=== PATIENT | male | born 1955 | race Caucasian/White ===

== ENCOUNTER 2020-05-31 11:27 | Emergency (ER) | payer OTHER, MEDICARE, SELFPAY ==
[2020-05-31 11:28] VITALS: BP 155/102; PULSE 81; RESP 16; TEMP 36.2; O2SAT 98; BMI 31.8
--- NOTE | 2020-05-31 12:06 | ED.VISSUMM ---
- ER Visit Summary Date of Service: 05/31/20 Chief Complaint: Back pain History of Present Illness: The patient is a 64 M who presents with back pain that is gradually been getting worse throughout the day today. Patient states that he recently had diarrhea for the last couple of days and has been laying around mostly. Patient states that his back feels more stiff. Patient states the pain goes from his neck all the way down to his posterior thighs. Patient states nothing makes it better or worse. Patient denies any fevers or chills. Patient states his diarrhea has improved. Patient denies any dysuria or hematuria. Patient denies any urinary or stool incontinence. Physical Examination: Vital signs are stable. Patient is afebrile. Patient is in no acute distress. Musculoskeletal exam reveals tenderness and mild spasm of the lumbar, thoracic, and cervical paraspinal muscles. There is no midline tenderness. There is no bony crepitance or step-off. Range of motion was slightly limited in all motions of the cervical, thoracic, and lumbar spine secondary to pain. Strength is 5/5 bilateral in the upper and lower extremities. There are no sensory deficits noted. Deep tendon reflexes are 2+/4 bilaterally. Heart was regular rate and rhythm. Lungs are clear and equal bilaterally. Abdomen is soft nontender. Emergency Department Course and Treatment: Patient was given a prescription for Zanaflex. Patient states he has cyclobenzaprine at home which he tried with no improvement. Patient was instructed to do range of motion exercises. Patient was instructed to follow-up with his primary care physician in 5 to 7 days. Patient was instructed return if worse in any way. Patient understood and was agreeable with the plan. All questions were answered. Disposition: Discharge home Impression: Back pain This note was generated with [employer] dictation software. It may contain incorrect words, spelling, and punctuation that were not noted in review of the chart prior to signing ED Disposition - Plan for ED Patient: Disposition: Home or Assisted Living Diagnosis: Back pain Instructions: ED Neck Back Pain General Prescriptions: Tizanidine HCl [Zanaflex] 4 mg PO QHS PRN PRN #10 tab PRN Reason: Muscle Spasm Prescription Printed Referrals: Yosvany Hammer MD [Primary Care Provider] - 5-7 Days
[2020-05-31] MEDS: tiZANidine HCl 2 MG Tablet 4 MG PO (12:25)
[2020-05-31 12:28] VITALS: BP 147/93; PULSE 72; RESP 16
== END 2020-05-31 12:30 | disposition home or self-care (01) ==
LOC: ED 12:17
PROVIDERS: Emergency Provider Emergency Medicine; PCP Family Medicine
DX: M54.9 Dorsalgia, unspecified (principal); R19.7 Diarrhea, unspecified
CPT/HCPCS: 99283

== ENCOUNTER 2021-09-04 07:23 | Day surgery (SDC) | payer OTHER, MEDICARE, SELFPAY ==
[2021-09-04 07:55] VITALS: BP 122/76; PULSE 87; RESP 16; TEMP 37; O2SAT 97; BMI 36.3
[2021-09-04] MEDS: Lactated Ringers 1,000 ML 100 ML IV (08:01)
[2021-09-04 08:10] LABS: Hematocrit 41.7 % (40-54); Hemoglobin 13.3 g/dL (13.0-16.5); Mean Corp Hgb Conc 31.9 g/dL (32-36); Mean Corpuscular Hgb 28.6 pg (27.0-32.0); Mean Corpuscular Volume 89.7 fL (80-94); Mean Platelet Vol. 9.4 fl (6.2-12.0); Platelet Count 297 K/mm3 (150-450); RBC Distribution Width CV 13.8 % (11.6-14.6); RBC Distribution Width SD 45.8 fl (35.1-43.9); Red Blood Count 4.65 M/mm3 (4.6-6.2); White Blood Count 7.4 K/mm3 (4.4-11.0)
[2021-09-04 08:16] LABS: Scan Indicated on CBC? Y/N NO
--- NOTE | 2021-09-04 09:00 | CYST_PTH ---
PATIENT: BENITEZ KRISHNAN LOC: [facility] U#:[id number] AGE/SX: 66/M ROOM: RE09/04/[address]: Dr. kP Gomes DDS : 1955 BED: DIS: 09/04/2021 SPEC #: [id number] RECD: 09/04/21 12:52 STATUS: FAITH DUONG #: [id number] KHOA: 09/04/21 09:[address]: Pk Gomes DEPT: SURGICAL PATHOLOGY RECD BY: Romana Ho ENTERED: 09/05/21 09:16 SP TYPE: Cyst OTHR DR: Dr. Yosvany Hammer MD Tissues: CYST Procedures: Surgery Specimen Level IV HEADER OPERATION: Removal of impacted tooth #17, surgical extraction of #18 PRE-OP DIAGNOSIS: Left mandibular lesion TISSUE SUBMITTED: Left mandibular lesion MICROSCOPIC DIAGNOSIS Mandibular cyst, left: Benign odontogenic cyst, consistent with residual cyst. See comment. SJ:judie 09/06/2021 COMMENT Correlation with clinical findings and appropriate follow up are necessary. Case has been reviewed in consultation with Dr. Mendenhall who concurs with the above diagnosis. IDC:AM MICROSCOPIC DESCRIPTION Slides are reviewed. GROSS DESCRIPTION Received in fixative is one container labeled with the patient's name and designated mandibular cyst left. The specimen consists of two pieces of partially opened cystic tissue measuring 2 x 1.5 x 0.5 cm and 2 x 1.5 x 1 cm. The pieces are bisected and reveal brownish, hemorrhagic material. The entire specimen is submitted in two cassettes with each cassette containing one piece. / DEMARCO:judie 09/05/21 TC:5 CPT: 11173
[2021-09-04] MEDS: Lidocaine 2% /Epi 1:100 (50ml) 50 ML Vial (09:15)
[2021-09-04] MEDS: Bupivacaine Mpf 0.5% 30 ML VIAL (09:52)
[2021-09-04 10:02] VITALS: BP 122/76; BP 133/89; PULSE 97; RESP 16; TEMP 36.6; O2SAT 95
--- NOTE | 2021-09-04 10:04 | PCM.OPRPT ---
Report of Operation Date of Procedure: 09/04/21 Pre-Operative Diagnosis: Odontogenic cyst/neoplasm Post-Operative Diagnosis: Same Surgery/Procedure Performed:: Surgical removal teeth 17 and 18 and removal of left mandibular cyst Description of Surgical Findings:: Large cystic lesion measuring greater than 5 cm Surgeon: Mireya Type of Anesthesia: General Special Medications: None Specimen's removed: Large mandibular cystic lesion left mandible Drains: None Estimated Blood Loss (mL): Minimal Fluids Replaced: 250 cc Description of Procedure: Patient was identified in the preoperative holding area and the surgical procedure was explained in detail also with the included potential risk such as fractured jaw inferior alveolar and lingual nerve injuries, infection, possible need for further surgeries depending on the pathology. Patient was taken to the operating room placed in the supine position on the operating room table. The appropriate anesthetic monitors were then placed. IV general anesthesia was then induced patient was intubated via the oral endotracheal route without complication. Patient was then prepped and draped in the sterile fashion for oral and maxillofacial procedures. At this time lidocaine 2% 1-100,000 epinephrine was infiltrated into the left inferior alveolar nerve area to anesthetize this nerve. Local anesthesia was then administered in the buccal vestibule of the left mandible. Full-thickness mucoperiosteal flap incision was carried from the ascending ramus carried anteriorly to tooth #18. Tooth 18 was then removed by sectioning and then bone removal over impacted tooth 17 was performed. Tooth #17 was removed and sectioned so as to not injure neurovascular structures or fracture of the mandible. The cyst was notably large and was removed from the anterior ramus all the way up to the body of the left mandible. Tissue was sent for histopathologic evaluation. The site was irrigated and sutured with 3-0 Chromic Gut suture. Patient tolerated the procedure and anesthesia well was extubated and taken to the PACU unit in stable condition breathing spontaneously. All sponge and needle counts were correct no complications noted estimated blood loss minimal Procedure Start Time: 09:11 Procedure Stop Time: 10:11 Complications None
[2021-09-04 10:15] VITALS: BP 114/82; BP 122/76; PULSE 89; RESP 17; O2SAT 98
--- NOTE | 2021-09-04 10:16 | SUR.PHASEI ---
TAKING ICE CHIPS WITHOUT PROBLEM
[2021-09-04 10:22] VITALS: BP 122/76; BP 125/80; PULSE 83; RESP 17; TEMP 37; O2SAT 95
[2021-09-04 10:45] VITALS: BP 122/76
[2021-09-04 11:14] VITALS: BP 122/76; BP 126/83; PULSE 85; RESP 16; TEMP 36.6; O2SAT 96
== END 2021-09-04 11:16 | disposition home or self-care (01) ==
LOC: SDC 07:25 → AC 07:26
PROVIDERS: PCP Family Medicine; Referring Provider Dentist Oral and Maxillofacial Surgery; Visit Provider Dentist Oral and Maxillofacial Surgery
PROC: (CPT 41899; principal; 2021-09-04 08:45)
DX: M27.40 Unspecified cyst of jaw (principal); K01.1 Impacted teeth; K21.9 Gastro-esophageal reflux disease without esophagitis; G62.9 Polyneuropathy, unspecified; I10 Essential (primary) hypertension; H91.90 Unspecified hearing loss, unspecified ear; I73.00 Raynaud's syndrome without gangrene; Z79.899 Other long term (current) drug therapy
CPT/HCPCS: 00190; 21040; 41899; 85027; 88304; 88305; J7120